=== PATIENT | male | born 1955 | race Caucasian/White ===

== ENCOUNTER → 2017-02-21 | Outpatient (CLI) | payer BC ==
--- NOTE | 2017-02-21 09:49 | RAD ---
EXAM: CT abdomen/pelvis without contrast. HISTORY: Left flank pain. TECHNIQUE: Computed tomography of the abdomen and pelvis was performed without intravenous contrast. COMPARISON: 08/13/2013. FINDINGS: Lung windows through the visualized portions of the bases reveal mild atelectasis. Bone windows reveal no suspicious lesions. The gallbladder is surgically absent. The liver, adrenal glands, and pancreas are unremarkable without contrast. He there is a calcified granuloma in the spleen. There are no pathologically enlarged lymph nodes. There is a 2 mm calculus within the left renal upper pole. A left distal ureteral calculus measures 5 x 3 mm. There are no significant obstructive findings. There are no right renal or ureteral calculi. The kidneys are otherwise unremarkable without contrast. There is mild bladder wall thickening. Sigmoid and left diverticulosis is moderate. A small left inguinal hernia contains only fat. IMPRESSION: 1. 5 x 3 mm left distal ureteral calculus. No significant obstructive findings. 2. 2 mm left renal calculus. 3. Small fat-containing left inguinal hernia. *One or more of the following individualized dose reduction techniques were utilized for this examination: 1. Automated exposure control. 2. Adjustment of the mA and/or kV according to patient size. 3. Use of iterative reconstruction technique.
== END | disposition home or self-care (01) ==
LOC: KCIC CT 08:52
PROVIDERS: ATTEND Family Medicine
DX: K40.90 Unilateral inguinal hernia, without obstruction or gangrene, not specified as recurrent (principal); N20.1 Calculus of ureter; N20.0 Calculus of kidney
CPT/HCPCS: 74176

== ENCOUNTER 2017-05-22 07:55 | Outpatient (CLI) | payer BC ==
[2017-05-22 08:17] LABS: HEMATOCRIT 47.7 % (39.0-53.0); MEAN CORPUSCULAR HEMOGLOBIN 31 pg (25-35); MEAN CORPUSCULAR HGB CONC 34 g/dL (31-37); MEAN CORPUSCULAR VOLUME 94 fL (79-100); PLATELET COUNT 231 x10^3/uL (140-400); RED BLOOD COUNT 5.09 x10^6/uL (4.30-5.70); RED CELL DISTRIBUTION WIDTH 13.2 % (11.5-14.5); WHITE BLOOD COUNT 6.6 x10^3/uL (4.0-11.0)
[2017-05-22 08:29] LABS: INR 0.9 (0.8-1.1); PROTHROMBIN TIME PATIENT 11.8 SEC (11.7-14.0)
[2017-05-22] MEDS: ASPIRIN 325 MG TABLET PO (08:30)
[2017-05-22 08:41] LABS: ANION GAP 7 (6-14); BLOOD UREA NITROGEN 14 mg/dL (8-26); CALCIUM 8.4 mg/dL (8.5-10.1); CARBON DIOXIDE 29 mmol/L (21-32); CHLORIDE 107 mmol/L (98-107); CREATININE 1.3 mg/dL (0.7-1.3); GFR 56.1; GLUCOSE 91 mg/dL (70-99); SODIUM 143 mmol/L (136-145)
[2017-05-22] MEDS ORDERED: IOHEXOL 300 MG/ML 100ML VIAL. (09:01)
[2017-05-22] MEDS ORDERED: LIDOCAINE 2% 20 ML VIAL. (09:01)
[2017-05-22] MEDS ORDERED: fentaNYL PF VIAL 100 MCG/2 ML VIAL (09:11)
[2017-05-22] MEDS ORDERED: HEPARIN for IV BOLUS 10,000 UNIT/10 ML VIAL. (09:12)
[2017-05-22] MEDS ORDERED: NITROGLYCERIN 200 MCG/2 ML SYRINGE FOR CATH/VASC LAB. (09:12)
[2017-05-22] MEDS ORDERED: MIDAZOLAM HCL/PF 2 MG/2 ML VIAL. (09:12)
[2017-05-22] MEDS ORDERED: VERAPAMIL 5 MG/2 ML VIAL. (09:12)
[2017-05-22] MEDS: fentaNYL PF VIAL 100 MCG/2 ML VIAL IV (09:57)
[2017-05-22] MEDS: NITROGLYCERIN 200 MCG/2 ML SYRINGE FOR CATH/VASC LAB. IART (09:57)
[2017-05-22] MEDS: MIDAZOLAM HCL/PF 2 MG/2 ML VIAL. IV (09:57)
[2017-05-22] MEDS: VERAPAMIL 5 MG/2 ML VIAL. IART (09:57)
[2017-05-22] MEDS: LIDOCAINE 2% 20 ML VIAL. IJ (09:57)
[2017-05-22] MEDS ORDERED: CONTRAST GIVEN MC (10:00)
[2017-05-22] MEDS: HEPARIN for IV BOLUS 10,000 UNIT/10 ML VIAL. IART (10:00)
[2017-05-22] MEDS: IOHEXOL 300 MG/ML 100ML VIAL. IART (10:01)
== END 2017-05-22 13:00 | disposition home or self-care (01) ==
LOC: CCL 07:55
DX: I25.10 Atherosclerotic heart disease of native coronary artery without angina pectoris (principal); F32.9 Major depressive disorder, single episode, unspecified; F41.9 Anxiety disorder, unspecified; Z98.890 Other specified postprocedural states; Z87.442 Personal history of urinary calculi; Z90.49 Acquired absence of other specified parts of digestive tract; Z82.49 Family history of ischemic heart disease and other diseases of the circulatory system; Z87.19 Personal history of other diseases of the digestive system; Z87.39 Personal history of other diseases of the musculoskeletal system and connective tissue
CPT/HCPCS: 36415; 80048; 85027; 85610; 93458; 93571; 99152; 99153; C1769; C1892; J1644; J2250; J3010; J3490; Q9967

== ENCOUNTER → 2017-06-18 | Outpatient (CLI) | payer BC ==
[2017-06-18 09:48] LABS: ADD MAN DIFF? NO
[2017-06-18 10:00] LABS: BASO # 0.1 x10^3/uL (0.0-0.2); BASO % 1 % (0-3); EOS # 0.1 x10^3/uL (0.0-0.7); EOS % 2 % (0-3); HEMATOCRIT 46.6 % (39.0-53.0); HEMOGLOBIN 16.1 g/dL (13.0-17.5); LYMPH # 1.6 x10^3/uL (1.0-4.8); LYMPH % 21 % (24-48); MEAN CORPUSCULAR HEMOGLOBIN 32 pg (25-35); MEAN CORPUSCULAR HGB CONC 35 g/dL (31-37); MEAN CORPUSCULAR VOLUME 92 fL (79-100); MONO # 0.8 x10^3/uL (0.0-1.1); MONO % 10 % (0-9); NEUT # 5.2 x10^3uL (1.8-7.7); NEUT % 67 % (31-73); PLATELET COUNT 214 x10^3/uL (140-400); RED BLOOD COUNT 5.04 x10^6/uL (4.30-5.70); RED CELL DISTRIBUTION WIDTH 13.3 % (11.5-14.5); WHITE BLOOD COUNT 7.9 x10^3/uL (4.0-11.0)
[2017-06-18 10:15] LABS: ALBUMIN 3.7 g/dL (3.4-5.0); ALBUMIN/GLOBULIN RATIO 1.1 (1.0-1.7); ALK PHOS 76 U/L (46-116); ALT (SGPT) 35 U/L (16-63); ANION GAP 10 (6-14); AST (SGOT) 24 U/L (15-37); BLOOD UREA NITROGEN 18 mg/dL (8-26); BUN/CREATININE RATIO 13 (6-20); CALCIUM 8.6 mg/dL (8.5-10.1); CARBON DIOXIDE 29 mmol/L (21-32); CHLORIDE 104 mmol/L (98-107); CREATININE 1.4 mg/dL (0.7-1.3); GFR 51.4; GLUCOSE 99 mg/dL (70-99); POTASSIUM 4.3 mmol/L (3.5-5.1); SODIUM 143 mmol/L (136-145); TOTAL BILIRUBIN 0.5 mg/dL (0.2-1.0)
== END | disposition home or self-care (01) ==
LOC: LAB 09:34
DX: I25.10 Atherosclerotic heart disease of native coronary artery without angina pectoris (principal)
CPT/HCPCS: 36415; 80053; 85025